=== PATIENT | female | born 1970 | race Caucasian/White ===

== ENCOUNTER 2023-02-22 10:32 | Emergency (ER) | payer OTHER ==
[~2023-02-22] VITALS: Ht 160 cm; Wt 113.4 kg
[~2023-02-22 10:32] MED LIST: ACET325 PO; ALBU90OI INH; AMIT10 PO; AMOCLA875 PO; ASPI325 PO; ASPI81CH PO; ATOR20 PO; Aspir 8181 MG PO; BENZ100A PO; BUPR150T2 PO; BUPR75 PO; BUSP15 PO; Benadryl 50 mg50 MG PO; Budeprion Xl300 MG; CITA20 PO; CYCL10 PO; DONE10 PO; DONE5 PO; ESCI20 PO; ESTR2 PO; ESTRADIOL1 MG PO; ESTRADIOL42.5 GM VAG; Esgic Tablet1 EACH PO; FISH1000 PO; FURO20 PO; GABA300 PO; GABA300T24 PO; GUAI600T33 PO; HYDACE5 PO; HYDR1TAB94 PO; IBUP800 PO; Inderal40 MG PO; KETO10 PO; LEVSOD125 PO; LEVSOD25 PO; LEVSOD50 PO; LOVASTATIN PO; METO10 PO; MIRALAX17 GM PO; NYST100TC TOP; NYSTATIN15 GM TOP; Norflex100 MG PO; ONDA4ODT MM; PRAV20; PRAV20 PO; PRED20 PO; PROM25 PO; PROP80ER PO; Pepcid20 MG PO; SUMA25 PO; Simvastatin40 MG PO; TOPI100 PO; VARE1; VENL150ER PO; VENL75ER PO; VITAMIN D
[2023-02-22 10:43] VITALS: BP 160/89
[2023-02-22] MEDS ORDERED: OCUFLOX5 M9 RIGHTEAR (10:48)
[2023-02-22] MEDS ORDERED: Amoxicillin875 MG PO (10:48)
== END 2023-02-22 10:49 | disposition home or self-care (01) ==
LOC: ER 10:32
DX: H60.91 Unspecified otitis externa, right ear (principal); I10 Essential (primary) hypertension; J45.909 Unspecified asthma, uncomplicated; E11.9 Type 2 diabetes mellitus without complications; F17.200 Nicotine dependence, unspecified, uncomplicated; Z88.5 Allergy status to narcotic agent; Z88.8 Allergy status to other drugs, medicaments and biological substances; Z91.048 Other nonmedicinal substance allergy status; Z79.899 Other long term (current) drug therapy; Z79.82 Long term (current) use of aspirin
CPT/HCPCS: 99282

== ENCOUNTER → 2023-11-06 | Outpatient (CLI) | payer OTHER ==
[~2023-11-06] MED LIST changes: +Amoxicillin875 MG PO; +OCUFLOX5 M9 RIGHTEAR
[2023-11-06 17:36] LABS: BASOPHILS ABSOLUTE AUTO 0.03 K/mm3 (0.00-0.23); BASOPHILS PERCENT AUTO 0 % (0-2); EOSINOPHILS ABSOLUTE AUTO 0.18 K/mm3 (0.00-0.68); EOSINOPHILS PERCENT AUTO 3 % (0-6); IMMATURE GRAN ABSOLUTE AUTO 0.02 K/mm3 (0.00-0.10); IMMATURE GRAN PERCENT AUTO 0 % (0-1); LYMPHOCYTES ABSOLUTE AUTO 2.55 K/mm3 (0.84-5.20); LYMPHOCYTES PERCENT AUTO 36 % (21-46); MONOCYTES ABSOLUTE AUTO 0.47 K/mm3 (0.16-1.47); MONOCYTES PERCENT AUTO 7 % (4-13); Mean Corpuscular HGB 29.3 pg (26.0-34.0); Mean Corpuscular HGB Conc 32.6 g/dL (31.5-36.5); Mean Corpuscular Volume 90 fL (80-100); Mean Platelet Volume 10.6 fL (9.1-12.4); NEUTROPHILS ABSOLUTE AUTO 3.86 K/mm3 (1.96-9.15); NEUTROPHILS PERCENT AUTO 54 % (41-73); Platelet Count 224 K/mm3 (150-400); RDW Coefficient Variation 13.2 % (11.7-14.2); RDW Standard Deviation 43.6 fL (35.1-46.3); Red Blood Cell Count 5.12 M/mm3 (3.80-5.20); White Blood Cell Count 7.11 K/mm3 (4.00-11.30)
[2023-11-06 18:09] LABS: Alanine Aminotransfer (ALT/SGP 24 U/L (12-78); Albumin, Blood 3.7 g/dL (3.4-5.0); Alk Phos 65 U/L (50-136); Anion Gap 8 mmol/L (3-11); Aspartate Aminotrans (AST/SGOT 16 U/L (12-37); Bilirubin, Total 0.4 mg/dL (0.1-1.0); Blood Urea Nitrogen 16 mg/dL (8-24); Bun/Creatinine Ratio 17.8 (12.0-20.0); CHOL/HDL RATIO 6.5; CO2, Blood 25 mmol/L (21-32); Calcium, Blood 8.5 mg/dL (8.5-10.1); Chloride, Blood 111 mmol/L (98-108); Cholesterol 292 mg/dL (50-200); Free Thyroxine 0.85 ng/dL (0.70-1.60); Globulin, Blood 3.8 g/dL (2.2-4.0); Glomerular Filtration Rate 76 (60-); Glucose, Blood 121 mg/dL (70-99); HDL Cholesterol 45 mg/dL (>39); LDL/HDL RATIO Unable to Calculate; Low Density Lipoprotein Chol Unable to Calculate mg/dL (0-110); Potassium, Blood 3.7 mmol/L (3.5-5.5); Sodium, Blood 140 mmol/L (136-145); Total Protein, Blood 7.5 g/dL (6.4-8.2); Triglycerides 472 mg/dL (30-160); Very Low Density Lipoprot Chol Unable to Calculate mg/dL (6-32)
[2023-11-06 18:23] LABS: LDL Direct Measurement 189 mg/dL (0-130)
== END | disposition home or self-care (01) ==
LOC: LAB 16:51 → LAB SHORT 16:51
PROVIDERS: General Practice
DX: Z13.6 Encounter for screening for cardiovascular disorders (principal); E66.9 Obesity, unspecified; N95.1 Menopausal and female climacteric states; Z86.39 Personal history of other endocrine, nutritional and metabolic disease
CPT/HCPCS: 80053; 80061; 83001; 83002; 83036; 83721; 84439; 84443; 85025

== ENCOUNTER → 2024-02-05 | Outpatient (CLI) | payer OTHER ==
[2024-02-05 18:56] LABS: Bacterial Vaginosis PCR Negative (NEGATIVE); Candida glabrata-krusei, PCR NOT DETECTED (NOT DETECT)
[2024-02-05 19:11] LABS: Candida Group, PCR DETECTED (NOT DETECT)
== END | disposition home or self-care (01) ==
LOC: LAB 14:49 → LAB SHORT 14:49
PROVIDERS: General Practice
DX: N89.8 Other specified noninflammatory disorders of vagina (principal)
CPT/HCPCS: 87481; 87661; 87801

== ENCOUNTER → 2024-08-09 | Outpatient (CLI) | payer OTHER ==
[2024-08-10 10:28] LABS: Bacterial Vaginosis PCR Negative (NEGATIVE); Candida Group, PCR DETECTED (NOT DETECT); Candida glabrata-krusei, PCR NOT DETECTED (NOT DETECT)
[2024-08-12 19:32] LABS: HIV 1,2 COMBO ANTIGEN/ANTIBODY Negative (Negative)
[2024-08-12 19:56] LABS: C. TRACHOMATIS BY TMA,THINPREP Negative (Negative); N. GONORRHOEAE BY TMA,THINPREP Negative (Negative); SPECIMEN SOURCE Cervical
[2024-08-12 22:16] LABS: HEPATITIS C AB CIA INTERP Negative (Negative); HEPATITIS C ANTIBODY CIA INDEX 0.05 IV
[2024-08-13 02:44] LABS: HSV 1 SUBTYPE BY PCR Not Detected; HSV 2 SUBTYPE BY PCR Not Detected; HSV SUBTYPE SOURCE Blood
[2024-08-18 07:51] LABS: HPV HIGH RISK BY TMA Not Detected; HPV SOURCE Cervical
== END ==
LOC: LAB SHORT 16:28 → LAB 16:28
PROVIDERS: General Practice
DX: Z12.4 Encounter for screening for malignant neoplasm of cervix (principal); Z20.2 Contact with and (suspected) exposure to infections with a predominantly sexual mode of transmission
CPT/HCPCS: 81515; 86592; 86803; 87389; 87491; 87529; 87591; 87624; G0123